=== PATIENT | male | born 1995 | race Caucasian/White ===

== ENCOUNTER 2016-11-06 23:06 | Emergency (ER) | payer OTHER ==
[~2016-11-06] VITALS: Ht 190.5 cm; Wt 86.2 kg
[~2016-11-06 23:06] MED LIST: VICODIN 5-5001 EACH PO
[2016-11-07 01:19] VITALS: BP 126/74
== END 2016-11-07 01:22 | disposition home or self-care (01) ==
LOC: ER 23:06
DX: S91.311A Laceration without foreign body, right foot, initial encounter (principal); Z91.048 Other nonmedicinal substance allergy status; F10.99 Alcohol use, unspecified with unspecified alcohol-induced disorder; F15.90 Other stimulant use, unspecified, uncomplicated; W20.8XXA Other cause of strike by thrown, projected or falling object, initial encounter; Y93.89 Activity, other specified; Y92.89 Other specified places as the place of occurrence of the external cause; Y99.8 Other external cause status